=== PATIENT | male | born 1985 | race Caucasian/White ===

== ENCOUNTER 2019-12-21 14:06 | Outpatient (CLI) | payer BC, SELFPAY ==
[2019-12-21] MEDS ORDERED: ALUM35SO TP (14:39)
== END 2019-12-21 23:59 | disposition home or self-care (01) ==
LOC: STAR 14:06
PROVIDERS: ATTEND Surgery
DX: Z02.9 Encounter for administrative examinations, unspecified (principal)

== ENCOUNTER 2019-12-28 12:56 | Day surgery (SDC) | payer BC ==
[~2019-12-28] VITALS: Ht 185.4 cm; Wt 99.9 kg
[~2019-12-28 12:56] MED LIST: ALUM35SO TP
[2019-12-28 13:22] VITALS: BP 131/78
[2019-12-28] MEDS ORDERED: LACTATED RINGERS 1,000 ML IV SCH (13:24)
[2019-12-28] MEDS ORDERED: CHLORHEXIDINE 15 ML UDC MM ONE (13:30)
[2019-12-28] MEDS ORDERED: CHLORHEXIDINE 15 ML UDC ONE (13:31)
[2019-12-28] MEDS ORDERED: BUPIVACAINE/PF-EPI 0.5% 1:200K ONE (14:02)
[2019-12-28] MEDS ORDERED: FENTANYL PF 100 MCG/2ML ONE ×2 (15:33→17:24)
[2019-12-28] MEDS ORDERED: MIDAZOLAM 1 MG/ML, 2ML ONE (15:33)
[2019-12-28] MEDS ORDERED: CEFAZOLIN 1,000 MG ONE (15:34)
[2019-12-28] MEDS ORDERED: DEXAMETHASONE 4 MG/ML, 1ML ONE (15:34)
[2019-12-28] MEDS ORDERED: SUCCINYLCHOLINE 20 MG/ML, 10ML ONE (15:34)
[2019-12-28] MEDS ORDERED: ONDANSETRON 2MG/ML, 2ML ONE (15:34)
[2019-12-28] MEDS ORDERED: GLYCOPYRROLATE 0.2MG/1ML, 5ML ONE (15:34)
[2019-12-28] MEDS ORDERED: PROPOFOL 10 MG/ML, 20ML ONE (15:34)
[2019-12-28] MEDS ORDERED: NEOSTIGMINE 1 MG/ML, 10ML ONE (15:34)
[2019-12-28] MEDS ORDERED: ROCURONIUM 10MG/ML,5ML ONE (15:34)
[2019-12-28] MEDS ORDERED: SUGAMMADEX 200 MG/2 ML IVPush ONE (15:53)
[2019-12-28] MEDS ORDERED: OXYcodone 5 MG/5 ML ORAL.SOL UDC ONE (17:24)
[2019-12-28] MEDS ORDERED: PROMETHAZINE 25 MG/ML, 1ML ONE (17:26)
[2019-12-28] MEDS ORDERED: OXYcodone 5 MG/5 ML ORAL.SOL UDC PO PRN (17:30)
[2019-12-28] MEDS ORDERED: MEPERIDINE/PF 25MG/0.5ML IVPush PRN (17:30)
[2019-12-28] MEDS ORDERED: PROMETHAZINE 25 MG/ML, 1ML IVPush PRN (17:30)
[2019-12-28] MEDS ORDERED: hydrALAzine 20 MG/ML, 1ML IV PRN (17:30)
[2019-12-28] MEDS ORDERED: ONDANSETRON 2MG/ML, 2ML IVPush PRN (17:30)
[2019-12-28] MEDS ORDERED: LABETALOL 5MG/ML, 20ML IV PRN (17:30)
[2019-12-28] MEDS: FENTANYL PF 100 MCG/2ML IV PRN ×2 (17:31→17:38)
[2019-12-28] MEDS ORDERED: HYDROmorphone 1 MG/ML, 1ML INJ ONE (17:46)
[2019-12-28] MEDS: HYDROmorphone 1 MG/ML, 1ML INJ IVPush PRN ×2 (17:49→18:00)
[2019-12-28] MEDS ORDERED: OXYC5TAB3 PO (20:12)
== END 2019-12-28 20:10 | disposition home or self-care (01) ==
LOC: OUT 12:56 → 4NE 18:34 → OUT 20:10
PROVIDERS: ATTEND Surgery
DX: K40.20 Bilateral inguinal hernia, without obstruction or gangrene, not specified as recurrent (principal); Z11.59 Encounter for screening for other viral diseases; D17.6 Benign lipomatous neoplasm of spermatic cord; Z87.891 Personal history of nicotine dependence; Z98.890 Other specified postprocedural states
CPT/HCPCS: 36415; 49650; 87635; C1781; J0330; J0690; J1100; J1170; J2250; J2405; J2550; J2704; J2710; J3010; J7120; S2900; G0378